=== PATIENT | male | born 1970 | race Two or more races ===

== ENCOUNTER 2021-11-08 10:13 | Outpatient (REF) | payer BC, SELFPAY ==
[2021-11-08 10:49] LABS: COVID-19 Test Negative (Negative); IDNOW Serial# 08D9AD1C
== END 2021-11-08 10:14 | disposition home or self-care (01) ==
LOC: HO.LAB 10:13
PROVIDERS: Visit Provider Internal Medicine
DX: Z20.822 Contact with and (suspected) exposure to COVID-19 (principal)
CPT/HCPCS: 87635; C9803

== ENCOUNTER 2023-07-31 05:13 | Emergency (ER) | payer BC, SELFPAY ==
[2023-07-31 05:18] VITALS: BP 153/82; PULSE 74; RESP 18; TEMP 36.7; O2SAT 96; BMI 28.5
[2023-07-31 05:51] LABS: COVID-19 Test Negative (Negative); IDNOW Serial# 08D9AD1C
[2023-07-31 06:16] LABS: IDNOW Serial# 08D9AD1C; Influenza A Invalid (Negative); Influenza B2 Invalid (Negative)
[2023-07-31 06:39] LABS: IDNOW Serial# 6674DD1D; Influenza A Negative (Negative); Influenza B2 Negative (Negative)
--- NOTE | 2023-07-31 09:15 | ED.GENADULT ---
HPI - General Adult General Chief complaint: General Medical Stated complaint: difficulty breathing Time Seen by Provider: 07/31/23 09:12 Source: patient Mode of arrival: ambulatory Limitations: no limitations History of Present Illness HPI narrative: Patient is a 52 year old assigned male at with no reported medical history presenting to the emergency department today with sinus pain and congestion. Patient states that for the last 2 weeks he has had sinus pain and congestion not improved with OTC medications. Patient denies any dizziness, lightheadedness, abdominal pain, nausea, vomiting, fever, chills, blurry vision, double vision, loss of vision, chest pain, difficulty breathing, shortness of breath, back pain, night sweats, pain with urination, increased urinary frequency, increased urinary urgency, blood in his urine or stool, syncope or a near syncopal episode, recent trauma or falls, bowel incontinence, bladder incontinence, bowel retention, bladder retention, or any other complaints at this time. Onset (ago): week(s) (2) Severity: mild Severity scale (1-10): 3 Quality: aching and dull Pain Consistency: constant Relieving factors: none Exacerbating factors: none Associated symptoms: denies other symptoms Treatments prior to arrival: none Related Data Previous Rx's Medication Instructions Recorded albuterol sulfate 90 mcg/actuation 1 puff PO Q4H #8.5 grams 10/17/20 aerosol inhaler doxycycline hyclate 100 mg tablet 100 mg PO BID 7 days #14 tabs 07/31/23 Allergies Allergy/AdvReac Type Severity Reaction Status Date / Time No Known Allergies Allergy Verified 07/31/23 05:18 [No Known Allergies*] Review of Systems Constitutional: Constitutional: Reports no additional constitutional complaints, Denies chills, Denies fever(s) and Denies night sweats Eyes: Eyes: Reports no additional eye complaints, Denies blurry vision, Denies change in vision, Denies diplopia, Denies eye discharge, Denies loss of vision and Denies eye pain ENT: Denies dizziness, Reports nasal congestion and Reports sinus pain Cardiovascular: Cardiovascular: Reports no additional cardiovascular complaints, Denies chest pain, Denies lightheadedness, Denies Loss of Consciousness and Denies dyspnea Respiratory: Respiratory: Reports no additional respiratory complaints and Denies dyspnea Gastrointestinal: Gastrointestinal: Reports no additional gastrointestinal complaints, Denies abdominal pain, Denies melena, Denies hematochezia, Denies change in bowel habits and Denies change in stool character Genitourinary: Genitourinary: Reports no additional male genitourinary complaints, Denies hematuria, Denies oliguria, Denies difficulty urinating, Denies dysuria, Denies urinary frequency, Denies urinary hesitancy, Denies urinary incontinence and Denies urinary urgency Musculoskeletal: Musculoskeletal: Reports no additional musculoskeletal complaints, Denies numbness and Denies tingling Neurologic: Denies dizziness, Denies loss of vision, Denies numbness and Denies tingling Psychiatric: Psychiatric: Reports no additional psychiatric complaints Endocrine: Endocrine: Reports no additional endocrine complaints Hematologic/Lymphatic: Hematologic/Lymphatic: Reports no additional hematologic/lymphatic complaints Allergic/Immunologic: Allergic/Immunologic: Reports no additional allergic/immunologic complaints PMFSH Past Medical History Attestation statement: The following information was validated with the patient. Source: old records reviewed and nursing notes reviewed Onset Date is defined in the Problem List Problems that require an onset date and time if occurred within 24 hrs of arrival to the ED Aortic Dissection and Rupture; Neurologic impairment; Cardiopulmonary Arrest; Endotracheal Intubation; Insertion or Replacement of Mechanical Circulatory Assist Device Physical Exam ED Vital Signs: Vital Signs - 24 hr 07/31/23 05:18 Temperature 98.1 F Pulse Rate 74 Respiratory Rate 18 Blood Pressure 153/82 H Pulse Oximetry 96 Oxygen Delivery Method Room Air BMI result Body Mass Index 28.5 Const General: cooperative, no acute distress, alert and awake Nutritional Appearance: well nourished Orientation/consciousness: patient oriented x3 Limitations: no limitations [facility] Head: Yes normal to inspection and Yes atraumatic Ears: hearing grossly normal bilaterally and external ears normal General nose exam: Normal external nose present, no nasal discharge noted and no epistaxis Face and sinus: Yes normal facial exam, No abrasion, No laceration and Yes sinus tenderness Mouth: Normal oral and palatal mucosa present, no drooling and no muffled voice Eyes General: appearance normal, both eyes and all related structures Periorbital: periorbital findings normal Eyelids: Yes eyelids normal Conjunctivae: conjunctivae normal Pupils: Equal, round and reactive pupils present EOM: EOMs intact bilaterally Neck Neck: Yes normal visual inspection, Yes full ROM and Yes no lymphadenopathy Chest Chest palpation & inspection: normal inspection of the chest Resp Effort & Inspection: normal respiratory effort and able to speak in complete sentences GI Inspection: Yes normal to inspection Neuro General: patient oriented x3 and moves all extremities Cranial nerves: Yes Equal, round and reactive pupils present Cognition (Neuro): normal cognition Motor exam (neuro): 5/5 motor strength present throughout Sensory Exam: Normal double simultaneous stimulation for sensation Coordination: [id number] test normal Extrem General: Yes normal to inspection, Yes full ROM and Yes capillary refill normal Psych Appearance: grossly normal Mental Status: mental status grossly normal Affect: normal affect Attitude: cooperative Thought process: Normal thought process present Thought content: Normal thought content present Insight: Good insight present (Psych) Medical Decision Making Medical Decision Making MDM Narrative: Patient is a 52 year old assigned male at with no reported medical history presenting to the emergency department today with nasal congestion and sinus pain. Patient's physical exam was as noted in the physical exam portion of this note. Patient's COVID-19 and influenza tests were negative. I explained my physical exam findings as well as all test results to the patient. I answered all questions asked by the patient. I stressed the importance of the patient taking his medication as prescribed. I stressed the importance of the patient following up with his primary care provider. I stressed the importance of the patient returning to the emergency department immediately if his symptoms were to worsen or if he were to develop any dizziness, shortness of breath, difficulty breathing, chest pain, blurry vision, loss of vision, nausea, vomiting, abdominal pain, fever, chills, back pain, or any other complaints. Patient verbalized agreement and understanding with this treatment plan and discharge. Differential Diagnosis Differential Diagnoses: The differential diagnosis associated with the presentation includes Sinusitis Influenza COVID-19 URI Viral illness Admission/Observation Consideration of admission/observation: Escalation of care including admission/observation considered Patient would have been admitted to the hospital had his work up had any findings where hospital admission was appropriate and his clinical presentation warranted hospital admission. Lab Data [facility] Lab Attestation statement: I reviewed the patient's lab results. My interpretation of these results are in the MDM Rationale portion of this note. Labs: Lab Results 07/31/23 07/31/23 Range/Units 05:27 06:18 COVID-19 (EDUAR) Negative (Negative) COVID-19 Clin Com See Note Influenza Type A (KYLE) Invalid Negative (Negative) Influenza Type B (KYLE) Invalid Negative (Negative) Influenza A & B Note See Note See Note Prescription Management I considered prescription management with: Antibiotic (patient prescribed an antibiotic for sinusitis) Discharge Plan Discharge Clinical Impression: Sinusitis Patient Disposition: Home, Self-Care Instructions: Sinusitis (ED) Additional Instructions: Follow up with your primary care provider. Return to the emergency department immediately if your symptoms worsen or if you develop any dizziness, shortness of breath, difficulty breathing, chest pain, blurry vision, loss of vision, nausea, vomiting, abdominal pain, fever, chills, back pain, or any other complaints. Prescriptions: New doxycycline hyclate 100 mg tablet 100 mg PO BID 7 Days Qty: 14 0RF No Action albuterol sulfate 90 mcg/actuation HFA aerosol inhaler 1 puff PO Q4H Qty: 8.5 6RF Referrals: Gustavo Woods, [employer] [Primary Care Provider] - Stand Alone Forms: Work/School Release Print Language: Indonesian
[2023-07-31 09:37] VITALS: BP 138/79; PULSE 72; RESP 16; TEMP 36.9; O2SAT 96
== END 2023-07-31 10:15 | disposition home or self-care (01) ==
PROVIDERS: Emergency Provider Emergency Medicine; PCP Nurse Practitioner Family
DX: J32.9 Chronic sinusitis, unspecified (principal); Z11.52 Encounter for screening for COVID-19
CPT/HCPCS: 87502; 87635; 99283

== ENCOUNTER 2023-08-06 09:01 | Outpatient (AMB) | payer BC, SELFPAY ==
[2023-08-06 09:01] VITALS: BP 138/76; PULSE 70; TEMP 36.8; O2SAT 98; BMI 28.6
--- NOTE | 2023-08-06 09:01 | AM.OFFWIN_ITS ---
Intake Vital Signs 08/06/23 09:01 Height 5 ft 10 in Weight 199 lb BMI 28.6 BP 138/76 Blood Pressure Location Lt brachial Position Sitting Pulse 70 Pulse Source Pulse Oximeter Temp 98.3 F Temp Source Oral Pulse Oximetry (%) 98 Intake Visit Reasons: EP Difficult breathing Intake Note: pt is here for c.o difficulty breathing and was in ED and states they gave him medication that didn't help and was also requesting a refill on the inhaler Allergies No Known Allergies [No Known Allergies*] Allergy (Verified 08/06/23 09:20) Medication List - Last Reconciled 08/06/23 by Gareth Ravi, FARHANA albuterol sulfate 90 mcg/actuation 1 puff PO Q4H doxycycline hyclate 100 mg PO BID 7 days Do you need a note to return to daycare/school/sports/work: Yes HPI HPI Comments History of Present Illness Details Patient is a 52-year-old male here for sick visit. He was recently seen in the emergency room 6 days prior for a diagnosis of sinusitis. His upper respiratory swab came back negative. He was discharged with Doxycycline. He states that he feels like he is having a hard time breathing because his nose is completely stuffed and he has been unable to clear his sinuses even with [id number] medicine and saline rinses. Denies fever, vomiting, chest pain, shortness a breath, dizziness, numbness. He recently completed his course of doxycycline. He does not have an albuterol inhaler at this time. Review of Systems Const All systems reviewed & are unremarkable except as noted in HPI and below Physical Exam Vital Signs: Vital signs have been reviewed and stable Const Other: Appearance: Alert.? Oriented X3.? No acute distress.? Head: Normocephalic, atraumatic, no step-offs or deformities Eyes: Pupils equal, round and reactive to light.?TM intact and pearly alvarez. ENT: Pharynx normal.?Septum midline, swollen turbinates. Neck: Normal inspection.? Neck supple.?Full ROM CVS: Normal heart rate and rhythm.? Pulses normal.? Respiratory: No respiratory distress.? Breath sounds normal.? Abdomen: Soft and nontender.? Neuro: Oriented X 3.? No motor deficit.? No sensory deficit. CN 2-12 intact Assessment & Plan Assessment & Plan (1) Upper respiratory infection: Comment: Patient has been instructed to use saline nasal spray, and sleep with a humidifier in his bedroom at night. Will also prescribe albuterol inhaler and prednisone to be taken as directed. Patient has been educated on signs of worsening symptoms when to report to the walk-in or when to present to the ED. Code(s): J06.9 - Acute upper respiratory infection, unspecified Qualifiers: URI type: unspecified URI Qualified Code(s): J06.9 - Acute upper respiratory infection, unspecified Plan: Take your medications as prescribed. If you were prescribed antibiotics today, it is important that you take your medication to their entirety, do not skip any doses, do not finish them early. Follow-up with your primary care provider this week. Return to the emergency department with new or worsening symptoms. Such as fevers, chills, chest pain, shortness of breath, nausea, vomiting, dizziness, headache, vision changes, lethargy In case of emergency call 911 Plan Follow-up with PCP. Orders: Orders SARS-CoV2/FLU/RSV Today J06.9 - Acute upper respiratory infection, unspecified Medications: New 2 albuterol sulfate 90 mcg/actuation 2 puffs inhalation Q6H PRN 6.7 grams 0RF shortness of breath or wheezing prednisone 40 mg (2 x 20 mg) PO DAILY 10 tabs 0RF Discontinued albuterol sulfate 90 mcg/actuation Discontinued Reason: Doctor's Order 1 puff PO Q4H 8.5 grams 6RF Coding Level of Care Code Est Pt Level 3 (90778) Diagnoses Upper respiratory tract infection, unspecified type J06.9 URI type: unspecified URI Time Spent (min) 20
== END 2023-08-06 10:27 | disposition home or self-care (01) ==
PROVIDERS: PCP Nurse Practitioner Family; Visit Provider Nurse Practitioner Primary Care
DX: J06.9 Acute upper respiratory infection, unspecified (principal)
CPT/HCPCS: 99213

== ENCOUNTER 2023-08-06 09:18 | Outpatient (REF) | payer BC, SELFPAY ==
[2023-08-06 12:49] LABS: Influenza A PCR NEGATIVE (Negative); Influenza B PCR NEGATIVE (Negative); Resp Syncy Virus RNA Qual PCR NEGATIVE (Negative); SARS COV2 PCR INHOUSE NEGATIVE (Negative)
== END 2023-08-06 09:19 | disposition home or self-care (01) ==
LOC: HO.LAB 09:18
PROVIDERS: Visit Provider Nurse Practitioner Primary Care
DX: Z11.52 Encounter for screening for COVID-19 (principal); J06.9 Acute upper respiratory infection, unspecified
CPT/HCPCS: 0241U

== ENCOUNTER 2023-09-04 09:38 | Outpatient (AMB) | payer BC, SELFPAY ==
[2023-09-04 10:10] VITALS: BP 128/76; PULSE 96; O2SAT 97; BMI 29.0
--- NOTE | 2023-09-04 10:10 | MHC.PC.OV ---
Vital Signs 09/04/23 10:10 Height 5 ft 10 in Weight 202 lb BMI 29.0 BP 128/76 Blood Pressure Location Lt brachial Position Sitting Pulse 96 Pulse Source Pulse Oximeter Pulse Oximetry (%) 97 Oxygen Delivery Method Room Air Intake Visit Reasons: [employer]/ re est care Intake Note: Pt is here today for New patient visit. Allergies No Known Allergies [No Known Allergies*] Allergy (Verified 09/04/23 10:27) Medication List - Last Reconciled 09/04/23 by FARHANA Cordero albuterol sulfate 90 mcg/actuation 2 puffs inhalation Q6H PRN Tobacco use date assessed: 09/04/23 Dental Screening Dental Screen Date: 09/04/23 Did you have a dental visit in the last 12 months?: Yes Did you have a dental problem in the last 6 months where you did not have access to dental care?: No Was dental information given to patient?: Patient has dentist HPI HPI Comments History of Present Illness Details Patient is a 52-year-old male in to [facility]. He has a past medical history significant for seasonal allergies, on reactive airway disease. He has not had a primary care provider in several years. He is declining the COVID and influenza vaccine today. He is declining colonoscopy today but will opt for Cologuard. Patient will get the shingles vaccine. Patient is due for fasting labs. [facility] Family History Father Hypertension Substance use disorder Mother Aneurysm Hypertension Sister Breast cancer Social History Housing: House Alcohol intake: current Comment: twice per month Patient Tobacco Use Status: Current someday Tobacco user Tobacco use type: Cigarette e-Cigarette/Vaping Use: Never Used Current occupational status: employed Cognitive needs: No Hearing needs: No Vision needs: No Questionnaire PHQ-9 Over the last 2 weeks, how often have you been bothered by any of the following problems? 1. Little interest or pleasure in doing things: not at all 2. Feeling down, depressed, or hopeless: not at all 3. Trouble falling or staying asleep, or sleeping too much: several days 4. Feeling tired or having little energy: several days 5. Poor appetite or overeating: not at all 6. Feeling bad about yourself - or that you are a failure or have let yourself or your family down: not at all 7. Trouble concentrating on things, such as reading the newspaper or watching television: not at all 8. Moving or speaking so slowly that other people could have noticed. Or the opposite - being so fidgety or restless that you have been moving around a lot more than usual: not at all 9. Thoughts that you would be better off or of hurting yourself in some way: not at all Total score: 2 Depression Screening Interpretation: Negative Depression Screening Done: Yes Source: Developed by Drs. Champ Ford, Sharri Lopez, Miguel Bello and colleagues, with an educational milind from [employer]. Thrive Questionnaire Date Thrive assessed: 09/04/23 I am a: Patient What is your living situation today?: I have a steady place to live Within the past 12 months, did the food you bought not last and you didn't have the money to get more?: Never true Within the past 12 months, did you worry whether your food would run out before you got money to buy more?: Never true Do you have trouble paying for medicines?: No Do you have trouble getting transportation to medical appointments?: No Do you have trouble paying your heating and electricity bill?: No Do you have trouble taking care of your child, family member or friend?: No Do you have trouble with day-to-day activities such as bathing, preparing meals, shopping, managing finances, etc.?: No Are you currently unemployed and looking for a job?: No Are you interested in more education?: No Please select the resources that you would like help with: None THRIVE Score: 0 AUDIT C Alcohol Use Questionnaire (AUDIT-C) 1. How often do you have a drink containing alcohol?: Monthly or less 2. How many drinks containing alcohol do you have on a typical day when you are drinking?: 1 or 2 3. How often do you have six or more drinks on one occasion?: Never Total Score: 1 SERGIO-7 AMB Questionnaire SERGIO-7 Date SERGIO - 7 assessed: 09/04/23 Feeling nervous, anxious, or on edge: 0 = Not at all Not being able to stop or control worryin = Not at all Worrying too much about different things: 0 = Not at all Trouble relaxin = Several days Being so restless that it is hard to sit still: 1 = Several days Becoming easily annoyed or irritable: 0 = Not at all Feeling afraid as if something awful might happen: 0 = Not at all Total SERGIO-7 score (0-4 normal; 5-9 mild; 10-14 moderate; 15-21 severe): 2 Source: Developed by Drs. Champ Ford, Sharri Lopez, Miguel Bello and colleagues, with an educational milind from [employer]. SERGIO-7 Assessment Billing SERGIO-7 Assessment Tool: SERGIO-7 Assessment 65422 Review of Systems Const Details: Constitutional : No Weight loss, No Fever, No Chills, No Fatigue, No Malaise ENT/Mouth : No sore throat, Admits nasal congestion. Eyes: No Eye Pain, No Swelling, No Redness Cardiovascular : No Chest Pain, No SOB, No Dyspnea on Exertion, No Orthopnea, No Edema, No Palpitations Respiratory : No Cough, No Sputum, No Wheezing Gastrointestinal : No Nausea, No Vomiting, No Diarrhea, No Constipation, No abdominal Pain, No Hematochezia, No Melena Genitourinary : No Dysuria, No Urinary Frequency, No Hematuria, Musculoskeletal : No joint pain, No Myalgias, No Joint Swelling Skin : No Skin Lesions, No rash Neuro : No Weakness, No Numbness, No Dizziness, No Headache Psych : No Anxiety/Panic, No Depression Heme/Lymph: No Bruising, No Bleeding,No Lymphadenopathy Endocrine : No Polyuria, No Polydipsia All other systems reviewed and are negative Physical exam (Primary Care) Care Plan Goal for BP management: Vital signs reviewed are stable. BMI result Body Mass Index 29.0 Depression Screening Interpretation: Negative Const General: cooperative and no acute distress Orientation/consciousness: patient oriented x3 Limitations: no limitations HENMT Head: Yes normal to inspection and Yes normocephalic General nose exam: Abnormal mucous membranes and turbinates present boggy Face and sinus: Yes normal facial exam and Yes sinuses nontender Eyes General: appearance normal, both eyes and all related structures Neck Neck: Yes normal visual inspection and Yes full ROM Chest Chest palpation & inspection: normal inspection of the chest Resp Auscultation: clear to auscultation bilaterally Cardio Rate: regular rate Rhythm: regular rhythm Heart sounds: S1 normal heart sound present and S2 normal heart sound present Neuro General: patient oriented x3 and CN's II-XI intact bilaterally Cognition (Neuro): normal cognition Gait exam (Neuro): Normal gait present Psych Attitude: cooperative Thought process: Normal thought process present Thought content: Normal thought content present Insight: Good insight present (Psych) Judgement: Good judgement present (Psych) Assessment and Plan Assessment & Plan (1) Reactive airway disease: Comment: Patient has albuterol inhaler which he states he uses intermittently. Code(s): J45.909 - Unspecified asthma, uncomplicated Qualifiers: Asthma severity: mild Asthma persistence: intermittent Asthma complication type: uncomplicated Qualified Code(s): J45.20 - Mild intermittent asthma, uncomplicated Plan: Controlled at this time. (2) Nasal sinus congestion: Comment: Patient will be given prednisone in fluticasone to be taken as directed. He has been educated on signs of worsening symptoms and when to report back to the office or when to report to the walk-in. Code(s): R09.81 - Nasal congestion Plan: Take your medications as prescribed. If you were prescribed antibiotics today, it is important that you take your medication to their entirety, do not skip any doses, do not finish them early. Follow-up with your primary care provider this week. Return to the emergency department with new or worsening symptoms. Such as fevers, chills, chest pain, shortness of breath, nausea, vomiting, dizziness, headache, vision changes, lethargy In case of emergency call 911 Plan Patient will follow-up with physical exam in 4-5 months. He will draw labs. Orders: Orders Lipid Panel Today Z13.220 - Encounter for screening for lipoid disorders PSA,Total (Free>4and<10) Today Z12.5 - Encounter for screening for malignant neoplasm of prostate Vitamin D 25-OH (D2 and D3) Today Z13.21 - Encounter for screening for nutritional disorder TSH reflex Free T4 Today Z13.29 - Encounter for screening for other suspected endocrine disorder Complete Blood Count Auto Diff Today Z13.0 - Encounter for screening for diseases of the blood and blood-forming organs and certain disorders involving the immune mechanism Comprehensive Met. Panel Today Z91.89 - Other specified personal risk factors, not elsewhere classified UA CC w/rflx Micro + Cult Today Z13.89 - Encounter for screening for other disorder Referrals Cologuard Test Z12.11 - Encounter for screening for malignant neoplasm of colon, Z12.12 - Encounter for screening for malignant neoplasm of rectum Medications: New prednisone 40 mg (2 x 20 mg) PO DAILY 10 tabs 0RF fluticasone propionate 50 mcg/actuation (Allergy Relief (fluticasone)) administer into each nostril 2 sprays intranasal DAILY 16 grams 0RF Review Patient declined Colonoscopy: 09/04/23 Flu Vaccine not done: patient reason Coding Level of Care Code Est Pt Level 3 (63551) Diagnoses Mild intermittent reactive airway disease without complication J45.20 Asthma severity: mild Asthma persistence: intermittent Asthma complication type: uncomplicated Nasal sinus congestion R09.81 Additional Codes SERGIO-7 Assessment Billing - SERGIO-7 Assessment Tool: SERGIO-7 Assessment 57124 ([id number]) Time Spent (min) 30
== END 2023-09-04 10:51 | disposition home or self-care (01) ==
PROVIDERS: PCP Nurse Practitioner Family; Visit Provider Nurse Practitioner Primary Care
DX: J45.20 Mild intermittent asthma, uncomplicated (principal); R09.81 Nasal congestion
CPT/HCPCS: 99214

== ENCOUNTER 2023-10-24 13:51 | Outpatient (AMB) | payer BC, SELFPAY ==
[2023-10-24 13:52] VITALS: BP 118/84; PULSE 83; TEMP 36.8; O2SAT 96; BMI 28.1
--- NOTE | 2023-10-24 13:52 | MHC.OFFWIV ---
Intake Vital Signs 10/24/23 13:52 Height 5 ft 10 in Weight 196 lb 2 oz BMI 28.1 BP 118/84 Blood Pressure Location Lt brachial Position Sitting Pulse 83 Pulse Source Pulse Oximeter Temp 98.2 F Temp Source Oral Pulse Oximetry (%) 96 Oxygen Delivery Method Room Air Intake Visit Reasons: EP rt hand hangnail? Intake Note: Pt presents to the office today for c/o a right hand hangnail on his ring finger. Pt states the swelling and pain started yesterday. Pt denies any discharge from the finger. Patient Tobacco Use Status: Current someday Tobacco user Allergies No Known Allergies [No Known Allergies*] Allergy (Verified 10/24/23 13:55) HPI EP rt hand hangnail? HPI Details This is a 52 year old male patient who presents today with a swollen fingernail area on his right 4th finger at the base of the nailbed. He states he thinks this started as a hangnail which became infected. He has swelling and tenderness at the base of that fingernail bed. He has applied some hydrocortisone cream. He denies any fevers or any other complaints. [facility] Family History Father Hypertension Substance use disorder Mother Aneurysm Hypertension Sister Breast cancer Social History Housing: House Alcohol intake: current Comment: twice per month Patient Tobacco Use Status: Current someday Tobacco user Tobacco use type: Cigarette e-Cigarette/Vaping Use: Never Used Current occupational status: employed Cognitive needs: No Hearing needs: No Vision needs: No Review of Systems Const All systems reviewed & are unremarkable except as noted in HPI and below Physical Exam Vital Signs: Last Vital Signs Temp 98.2 F 10/24/23 13:52 Pulse 83 10/24/23 13:52 BP 118/84 10/24/23 13:52 Pulse Ox 96 10/24/23 13:52 Oxygen Delivery Method Room Air 10/24/23 13:52 BMI result Body Mass Index 28.1 Const General: cooperative and no acute distress Resp Effort & Inspection: normal respiratory effort Skin General skin exam: no rashes or lesions noted Extrem Other: base of nail bed of right 4th finger swollen, fluctuant, and erythematous. Normal cap refill. Normal finger ROM. No extending erythema or tenderness beyond site Psych Appearance: grossly normal Mental Status: mental status grossly normal Speech and movement: Normal speech and movement present Assessment & Plan Assessment & Plan (1) Infection of nail bed of finger of right hand: Code(s): L03.011 - Cellulitis of right finger Plan: Patient declined I&D at this time. We discussed soaking finger in epsom salt/warm water solution, and keeping area clean/dry otherwise. I am also going to start him on a short course of Bactrim for MRSA coverage. We reviewed indications, use, possible s/e of medication. If he does not improve with treatment or if symptoms worsen, he can return to the clinic. He agrees with plan. Medications: New sulfamethoxazole-trimethoprim 800-160 mg Take one tablet by mouth twice a day for 5 days. 1 tab PO BID 5 days 10 tabs 0RF L03.011 - Cellulitis of right finger Coding Level of Care Code Est Pt Level 4 (44982) Diagnoses Infection of nail bed of finger of right hand L03.011
== END 2023-10-24 14:20 | disposition home or self-care (01) ==
PROVIDERS: PCP Nurse Practitioner Primary Care; Visit Provider Nurse Practitioner Family
DX: L03.011 Cellulitis of right finger (principal)
CPT/HCPCS: 99214

== ENCOUNTER 2024-01-22 14:41 | Outpatient (AMB) | payer BC, SELFPAY ==
--- NOTE | 2024-01-22 14:44 | A.OFFPC_ITS ---
Vital Signs 01/22/24 14:46 Height 5 ft 10 in Weight 194 lb BMI 27.8 BP 124/82 Blood Pressure Location Lt brachial Position Sitting Pulse 67 Pulse Source Pulse Oximeter Pulse Oximetry (%) 98 Oxygen Delivery Method Room Air Intake Visit Reasons: 5M F/U Intake Note: pt is here for his 5 month f/u Allergies No Known Allergies [No Known Allergies*] Allergy (Verified 01/22/24 14:45) Medication List - Last Reconciled 01/22/24 by FARHANA Cordero albuterol sulfate 90 mcg/actuation 2 puffs inhalation Q6H PRN fluticasone propionate 50 mcg/actuation 2 sprays intranasal DAILY Tobacco use date assessed: 01/22/24 Dental Screening Dental Screen Date: 09/04/23 HPI HPI Comments History of Present Illness Details Patient is a 53-year-old male in today for a sick visit. patient has labs orders however he has not got them drawn, will educate him to get labs drawn as soon as possible. Patient with here offering complaints of sinus congestion, with sinus pain, is also expect to rating green mucus. Patient states he has had this issue intermittently since July. Has gotten some relief with fluticasone however symptoms have progressively gotten worse over the past week. Denies fever, denies chills, denies headache, denies nausea, vomiting, diarrhea PFSH Family History Father Hypertension Substance use disorder Mother Aneurysm Hypertension Sister Breast cancer Social History Housing: House Alcohol intake: current Comment: twice per month Patient Tobacco Use Status: Current someday Tobacco user Tobacco use type: Cigarette e-Cigarette/Vaping Use: Never Used Current occupational status: employed Cognitive needs: No Hearing needs: No Vision needs: No Questionnaire Thrive Questionnaire Date Thrive assessed: 09/04/23 SERGIO-7 AMB Questionnaire SERGIO-7 Date SERGIO - 7 assessed: 09/04/23 Source: Developed by Drs. Champ Ford, Sharri Lopez, Miguel Bello and colleagues, with an educational milind from [employer] Review of Systems Const All systems reviewed & are unremarkable except as noted in HPI and below Physical exam (Primary Care) Tobacco/Smoking Status: Tobacco use Status Tobacco use date assessed 01/22/24 01/22/24 14:46 Patient Tobacco Use Status Current someday Tobacco 01/22/24 14:44 Tobacco use type Cigarette 01/22/24 14:44 e-Cigarette/Vaping Use Never Used 01/22/24 14:44 Thrive Assessment: Date of Thrive Assessment Date Thrive assessed 09/04/23 01/22/24 14:44 [facility] Other: Appearance: Alert.? Oriented X3.? No acute distress.? Head: Normocephalic, atraumatic, no step-offs or deformities Eyes: Pupils equal, round and reactive to light.? ENT: Pharynx normal.?+ Sinus tenderness. TM intact and pearly alvarez. Neck: Normal inspection.? Neck supple.? CVS: Normal heart rate and rhythm.? Pulses normal.? Respiratory: No respiratory distress.? Breath sounds normal.? Neuro: Oriented X 3.? No motor deficit.? No sensory deficit. CN 2-12 intact Assessment and Plan Assessment & Plan (1) Chronic recurrent sinusitis: Comment: will give patient azithromycin and prednisone. Will also give patient referral to Ear Nose Throat for chronic sinusitis. Code(s): J32.9 - Chronic sinusitis, unspecified Plan: Take your medications as prescribed. If you were prescribed antibiotics today, it is important that you take your medication to their entirety, do not skip any doses, do not finish them early. Follow-up with your primary care provider this week. Return to the emergency department with new or worsening symptoms. Such as fevers, chills, chest pain, shortness of breath, nausea, vomiting, dizziness, headache, vision changes, lethargy In case of emergency call 911 Plan draw labs and will follow-up with results. Orders: Referrals Ear/Nose/Throat Referral J32.9 - Chronic sinusitis, unspecified Medications: New azithromycin For 250 mg dose pack: take 500 mg today (day 1), then 250 mg for 4 days (days 2-5) PO 6 tabs 0RF prednisone 20 mg PO BID 10 tabs 0RF Coding Level of Care Code Est Pt Level 3 (98136) Diagnoses Chronic recurrent sinusitis J32.9
[2024-01-22 14:46] VITALS: BP 124/82; PULSE 67; O2SAT 98; BMI 27.8
== END 2024-01-22 17:51 | disposition home or self-care (01) ==
PROVIDERS: PCP Nurse Practitioner Primary Care; Visit Provider Nurse Practitioner Primary Care
DX: J32.9 Chronic sinusitis, unspecified (principal)
CPT/HCPCS: 99213

== ENCOUNTER 2024-01-23 14:48 | Outpatient (REF) | payer BC, SELFPAY ==
[2024-01-23 16:00] LABS: MANUAL DIFF FLAG NO
[2024-01-23 16:19] LABS: Basophils Percent Auto 0.2 % (0-2); Eosinophils Percent Auto 0.1 % (0-4); Hematocrit 45.2 % (42.0-52.0); Hemoglobin 15.3 g/dl (14.0-18.0); Imm Gran Abs Auto 0.04 X10*3/uL (0.00-0.03); Imm Gran Pct Auto 0.4 % (0.0-0.4); Lymphocytes Percent Auto 9.2 % (20-40); Mean Corpuscular HGB Conc 33.8 g/dl (31.0-36.0); Mean Corpuscular Hemoglobin 28.9 pg (27.0-33.0); Mean Corpuscular Volume 85.4 fL (80.0-98.0); Mean Platelet Volume 10.7 fL (9.4-12.4); Monocytes Absolute Auto 0.3 X10*3/uL (0.1-1.2); Monocytes Percent Auto 2.9 % (2-11); Neutrophils Absolute Auto 9.9 x10*3/uL (2.0-8.3); Neutrophils Percent Auto 87.2 % (45-73); Platelet Count 240 X10*3/uL (160-400); Red Blood Count 5.29 X10*6/uL (4.60-5.80); Red Cell Distribution Width 13.4 % (11.0-16.0); White Blood Count 11.3 X10*3/uL (4.8-10.8)
[2024-01-23 16:20] LABS: Appearance Urine Clear; Color Urine Dark Yellow; Glucose Urine UA Negative (Negative); Leukocyte Esterase Urine Negative (Negative); Nitrite Urine Negative (Negative); PH 5.5 (5.0-9.0); Specific Gravity - Urine >= 1.030 (1.005-1.025); UMIC TRIGGER UACC YES; Urine Blood Trace (Negative); Urine Ketones Trace mg/dL (Negative); Urine Protein Trace mg/dL (Neg-Trace)
[2024-01-23 16:26] LABS: Bacteria Urine None Seen (None Seen); Hyaline Casts Urine 0-2 /LPF (0-2); Squamous Epithelial Cell Urine 0-2 /HPF (0-2); WBC Urine 0-5 /HPF (0-5)
[2024-01-23 16:46] LABS: Alanine Aminotransferase 17 U/L (0-40); Albumin Level 4.9 g/dL (3.5-5.0); Alkaline Phosphatase 89 U/L (39-117); Anion Gap 14 (12-20); Aspartate Amino Transferase 16 U/L (5-37); Bilirubin Total 0.6 mg/dL (0.0-1.0); Blood Urea Nitrogen 13 mg/dL (9-16); Calcium 10.1 mg/dL (8.4-10.2); Carbon Dioxide 25 mmol/L (22-29); Chloride 109 mmol/L (96-108); Cholesterol 181 mg/dL (<200); Estimated Glomerular Filt Rate > 60; Glucose Random 109 mg/dL (60-115); HDL Cholesterol 37 mg/dL (>40); LDL Cholesterol Calculated 118 mg/dL (<100); Potassium 4.8 mmol/L (3.3-5.1); Sodium 143 mmol/L (135-145); Total Protein 8.2 g/dL (6.5-8.0); Triglycerides 130 mg/dL (<150)
[2024-01-23 16:48] LABS: PSA,Total (Free>4and<10) 0.66 ng/mL (0.00-4.00)
[2024-01-23 16:57] LABS: TSH reflex Free T4 0.55 uIU/mL (0.32-4.0)
[2024-01-27 16:03] LABS: Vitamin D 25-OH, D2 <4 ng/mL; Vitamin D 25-OH, D3 38 ng/mL; Vitamin D 25-OH, Total 38 ng/mL (30-100)
== END 2024-01-23 14:49 | disposition home or self-care (01) ==
LOC: HO.HMGCLDS 14:48
PROVIDERS: PCP Nurse Practitioner Primary Care; Visit Provider Nurse Practitioner Primary Care
DX: Z13.0 Encounter for screening for diseases of the blood and blood-forming organs and certain disorders involving the immune mechanism (principal); Z13.220 Encounter for screening for lipoid disorders; Z13.29 Encounter for screening for other suspected endocrine disorder; Z12.5 Encounter for screening for malignant neoplasm of prostate; Z13.21 Encounter for screening for nutritional disorder; Z91.89 Other specified personal risk factors, not elsewhere classified
CPT/HCPCS: 36415; 80053; 80061; 81001; 82306; 84153; 84443; 85025

== ENCOUNTER 2024-07-02 14:39 | Outpatient (AMB) | payer BC, SELFPAY ==
[2024-07-02 15:50] VITALS: BP 120/70; PULSE 82; O2SAT 98; BMI 29.1
--- NOTE | 2024-07-02 15:50 | A.OFFPC_ITS ---
Vital Signs 07/02/24 15:50 Height 5 ft 10 in Weight 203 lb BMI 29.1 BP 120/70 Blood Pressure Location Rt brachial Position Sitting Pulse 82 Pulse Source Pulse Oximeter Pulse Oximetry (%) 98 Oxygen Delivery Method Room Air Intake Visit Reasons: Transfer from [facility] Allergies No Known Allergies [No Known Allergies*] Allergy (Verified 07/05/24 14:24) Medication List - Last Reconciled 07/05/24 by Jaymie Kelley MD fluticasone propionate 50 mcg/actuation 2 sprays intranasal DAILY Tobacco use date assessed: 07/02/24 Dental Screening Dental Screen Date: 07/02/24 Did you have a dental visit in the last 12 months?: Yes Did you have a dental problem in the last 6 months where you did not have access to dental care?: Yes Was dental information given to patient?: Patient has dentist HPI Transfer from [facility] HPI Details - The patient is a 53-year-old male, new to me, presenting today complaining rhinorrhea and nasal congestion, has history allergic rhinitis. - Regularly uses Fluticasone nasal spray (Flonase) for allergy management which has been helping, Requests a refill of Flonase. - Diagnosed with a deviated nasal septum by ENT, causing nasal obstruction. Previously advised surgical correction but deferred due to financial constraints. - Occasionally experiences nasal blockag e and discomfort [facility] Medical History (Updated 07/05/24 @ 14:27 by Jaymie Kelley MD) Environmental and seasonal allergies Deviated nasal septum Surgical History (Updated 07/05/24 @ 14:28 by Jaymie Kelley MD) No pertinent past surgical history Family History Father Hypertension Substance use disorder Mother Aneurysm Hypertension Sister Breast cancer Social History Housing: House Alcohol intake: current Comment: twice per month Patient Tobacco Use Status: Current someday Tobacco user Tobacco use type: Cigarette e-Cigarette/Vaping Use: Never Used Current occupational status: employed Cognitive needs: No Hearing needs: No Vision needs: No Questionnaire PHQ-9 Over the last 2 weeks, how often have you been bothered by any of the following problems? 1. Little interest or pleasure in doing things: not at all 2. Feeling down, depressed, or hopeless: not at all 3. Trouble falling or staying asleep, or sleeping too much: not at all 4. Feeling tired or having little energy: not at all 5. Poor appetite or overeating: not at all 6. Feeling bad about yourself - or that you are a failure or have let yourself or your family down: not at all 7. Trouble concentrating on things, such as reading the newspaper or watching television: not at all 8. Moving or speaking so slowly that other people could have noticed. Or the op posite - being so fidgety or restless that you have been moving around a lot more than usual: not at all 9. Thoughts that you would be better off or of hurting yourself in some way: not at all Total score: 0 Source: Developed by Drs. Champ Ford, Sharri Lopez, Miguel Bello and colleagues, with an educational milind from [employer]. Thrive Questionnaire Date Thrive assessed: 06/25/24 I am a: Patient What is your living situation today?: I have a steady place to live Within the past 12 months, did the food you bought not last and you didn't have the money to get more?: Never true Within the past 12 months, did you worry whether your food would run out before you got money to buy more?: Never true Do you have trouble paying for medicines?: No Do you have trouble getting transportation to medical appointments?: No Do you have trouble paying your heating and electricity bill?: No Do you have trouble taking care of your child, family member or friend?: No Do you have trouble with day-to-day activities such as bathing, preparing meals, shopping, managing finances, etc.?: No Are you currently unemployed and looking for a job?: No Are you interested in more education?: Yes Please select the resources that you would like help with: Education Currently or been in a relationship where the following occur: No concerns reported THRIVE Score: 0 AUDIT C Alcohol Use Questionnaire (AUDIT-C) 1. How often do you have a drink containing alcohol?: 2-4 times a month 2. How many drinks containing alcohol do you have on a typical day when you are drinking?: 1 or 2 3. How often do you have six or more drinks on one occasion?: Monthly Total Score: 4 SERGIO-7 AMB Questionnaire ESRGIO-7 Date SERGIO - 7 assessed: 09/04/23 Feeling nervous, anxious, or on edge: 0 = Not at all Not being able to stop or control worryin = Not at all Worrying too much about different things: 0 = Not at all Trouble relaxin = Not at all Being so restless that it is hard to sit still: 0 = Not at all Becoming easily annoyed or irritable: 0 = Not at all Feeling afraid as if something awful might happen: 0 = Not at all Total SERGIO-7 score (0-4 normal; 5-9 mild; 10-14 moderate; 15-21 severe): 0 Source: Developed by Drs. Champ Ford, Sharri Lopez, Miguel Bello and colleagues, with an educational milind from [employer]. Review of Systems Const All systems reviewed & are unremarkable except as noted in HPI and below Physical exam (Primary Care) Vital Signs: Last Vital Signs Pulse 82 07/02/24 15:50 BP 120/70 07/02/24 15:50 Pulse Ox 98 07/02/24 15:50 Oxygen Delivery Method Room Air 07/02/24 15:50 BMI result Body Mass Index 29.1 Tobacco/Smoking Status: Tobacco use Status Tobacco use date assessed 07/02/24 07/02/24 15:53 Patient Tobacco Use Status Current someday Tobacco 07/02/24 15:50 Tobacco use type Cigarette 07/02/24 15:50 e-Cigarette/Vaping Use Never Used 07/02/24 15:50 PHQ-9: PHQ-9 Score PHQ-9: Total score 0 07/05/24 14:23 Thrive Assessment: Date of Thrive Assessment Date Thrive assessed 06/25/24 07/02/24 15:50 Currently or been in a relationship where the following occur: No concerns reported Const General: no acute distress and alert Orientation/consciousness: patient oriented x3 HENMT Ears: EAC's normal General nose exam: Normal external nose present and No nasal discharge present Mouth: Normal oral and palatal mucosa present, oropharynx normal and moist mucous membranes Eyes General: appearance normal, both eyes and all related structures Neck Neck: Yes full ROM, Yes no lymphadenopathy and Yes supple Resp Effort & Inspection: normal respiratory effort and able to speak in complete sentences Auscultation: clear to auscultation bilaterally Cardio Rate: regular rate Rhythm: regular rhythm Heart sounds: S1 normal heart sound present and S2 normal heart sound present GI Palpation (GI): Soft to palpation, nontender and no masses Auscultation: normal bowel sounds Skin General skin exam: no rashes or lesions noted Neuro General: patient oriented x3, gait normal, tone normal, moves all extremities, Normal light touch and pain sensation and no focal motor deficits Cranial nerves: Yes CN's II-XII intact bilaterally Cognition (Neuro): normal cognition Extrem General: Yes full ROM, Yes no joint enlargement, Yes no clubbing, cyanosis or edema and Yes no calf tenderness Psych Appearance: grossly normal and well kempt Mental Status: mental status grossly normal Speech and movement: Normal speech and movement present Affect: normal affect Attitude: cooperative Thought process: Normal thought process present Thought content: Normal thought content present, suicidality and no homicidality Coding Level of Care Code Est Pt Level 3 (36265) Diagnoses Environmental and seasonal allergies J30.89 Deviated nasal septum J34.2 Assessment & Plan Assessment & Plan (1) Environmental and seasonal allergies: Code(s): J30.89 - Other allergic rhinitis Category: Medical Plan: Prescription refill sent for Flonase nasal spray, 1 spray per nostril once or twice a day as needed (2) Deviated nasal septum: Code(s): J34.2 - Deviated nasal septum Category: Medical Plan: Consider ENT consult, patient declined at present time Medications: Refilled fluticasone propionate 50 mcg/actuation 2 sprays intranasal DAILY 48 mL 1RF
== END 2024-07-02 16:13 | disposition home or self-care (01) ==
PROVIDERS: PCP Nurse Practitioner Primary Care; Visit Provider Internal Medicine
DX: J30.89 Other allergic rhinitis (principal); J34.2 Deviated nasal septum

== ENCOUNTER → 2024-07-02 14:39 | Outpatient (BNVA) | payer BC, SELFPAY | PROVIDERS: PCP Nurse Practitioner Primary Care; Visit Provider Internal Medicine ==

== ENCOUNTER 2024-10-08 15:42 | Outpatient (AMB) | payer BC, SELFPAY ==
[2024-10-08 15:56] VITALS: BP 126/80; PULSE 83; TEMP 36.8; O2SAT 97; BMI 29.3
--- NOTE | 2024-10-08 15:56 | MHC.PC.OV ---
Vital Signs 10/08/24 15:56 Height 5 ft 10 in Weight 204 lb BMI 29.3 BP 126/80 Blood Pressure Location Lt brachial Position Sitting Pulse 83 Pulse Source Pulse Oximeter Temp 98.3 F Temp Source Oral Pulse Oximetry (%) 97 Oxygen Delivery Method Room Air Intake Visit Reasons: PE Allergies No Known Allergies [No Known Allergies*] Allergy (Verified 10/08/24 16:09) Medication List - Last Reconciled 10/08/24 by Jaymie Kelley MD fluticasone propionate 50 mcg/actuation 2 sprays intranasal DAILY Tobacco use date assessed: 10/08/24 Dental Screening Dental Screen Date: 10/08/24 Did you have a dental visit in the last 12 months?: Yes Did you have a dental problem in the last 6 months where you did not have access to dental care?: Yes Was dental information given to patient?: Patient has dentist HPI PE HPI Details 53-year-old male with history of seasonal allergies, using fluticasone nasal spray as needed, here today for physical exam. He has been feeling well, exercise regularly at the gym, and lifts weights, compliant with a healthy diet. He however continues to smoke at least 7 cigarettes a day, but is interested in quitting. He is up to date with his colon cancer screen done in 2023 with negative findings. [facility] Medical History Cigarette smoker motivated to quit Environmental and seasonal allergies Deviated nasal septum Surgical History No pertinent past surgical history Family History Father Hypertension Substance use disorder Mother Aneurysm Hypertension Sister Breast cancer Social History Housing: House Alcohol intake: current Comment: twice per month Patient Tobacco Use Status: Current someday Tobacco user Tobacco use type: Cigarette e-Cigarette/Vaping Use: Never Used Current occupational status: employed Cognitive needs: No Hearing needs: No Vision needs: No Questionnaire PHQ-9 Over the last 2 weeks, how often have you been bothered by any of the following problems? 1. Little interest or pleasure in doing things: not at all 2. Feeling down, depressed, or hopeless: not at all 3. Trouble falling or staying asleep, or sleeping too much: not at all 4. Feeling tired or having little energy: not at all 5. Poor appetite or overeating: not at all 6. Feeling bad about yourself - or that you are a failure or have let yourself or your family down: not at all 7. Trouble concentrating on things, such as reading the newspaper or watching television: not at all 8. Moving or speaking so slowly that other people could have noticed. Or the opposite - being so fidgety or restless that you have been moving around a lot more than usual: not at all 9. Thoughts that you would be better off or of hurting yourself in some way: not at all Total score: 0 Depression Screening Interpretation: Negative Depression Screening Done: Yes 90932 - PHQ-9 Billing: Yes Source: Developed by Drs. Champ Ford, Sharri Lopez, Miguel Bello and colleagues, with an educational milind from [employer]. Thrive Questionnaire Date Thrive assessed: 10/01/24 I am a: Patient What is your living situation today?: I have a steady place to live Within the past 12 months, did the food you bought not last and you didn't have the money to get more?: Never true Within the past 12 months, did you worry whether your food would run out before you got money to buy more?: Never true Do you have trouble paying for medicines?: No Do you have trouble getting transportation to medical appointments?: No Do you have trouble paying your heating and electricity bill?: No Do you have trouble taking care of your child, family member or friend?: No Do you have trouble with day-to-day activities such as bathing, preparing meals, shopping, managing finances, etc.?: No Are you currently unemployed and looking for a job?: No Are you interested in more education?: No Please select the resources that you would like help with: None Currently or been in a relationship where the following occur: No concerns reported THRIVE Score: 0 AUDIT C Alcohol Use Questionnaire (AUDIT-C) 1. How often do you have a drink containing alcohol?: Never 2. How many drinks containing alcohol do you have on a typical day when you are drinking?: 1 or 2 3. How often do you have six or more drinks on one occasion?: Never Total Score: 0 SERGIO-7 AMB Questionnaire SERGIO-7 Date SERGIO - 7 assessed: 10/08/24 Feeling nervous, anxious, or on edge: 0 = Not at all Not being able to stop or control worryin = Not at all Worrying too much about different things: 0 = Not at all Trouble relaxin = Not at all Being so restless that it is hard to sit still: 0 = Not at all Becoming easily annoyed or irritable: 0 = Not at all Feeling afraid as if something awful might happen: 0 = Not at all Total SERGIO-7 score (0-4 normal; 5-9 mild; 10-14 moderate; 15-21 severe): 0 Source: Developed by Drs. Champ Frod, Sharri Lopez, Miguel Bello and colleagues, with an educational milind from [employer]. SERGIO-7 Assessment Billing SERGIO-7 Assessment Tool: SERGIO-7 Assessment 44135 Review of Systems Const Denies body aches, Denies fatigue, Denies fever(s), Denies headache(s) and Denies weakness Eyes Denies change in vision ENT Denies dizziness and Denies headache(s) Card Denies chest pain, Denies lightheadedness, Denies palpitations and Denies dyspnea Resp Denies chest congestion, Denies cough, Denies dyspnea and Denies wheezing GI Denies abdominal pain, Denies change in bowel habits and Denies heartburn Denies hematuria, Denies difficulty urinating, Denies dysuria, Denies urinary frequency and Denies urinary urgency Musc Reports no additional complaints Skin/Breast Denies lesions and Denies rash Neuro Denies dizziness, Denies headache(s) and Denies weakness Psych Reports no additional complaints Endo Denies fatigue, Denies polydipsia, Denies polyuria and Denies palpitations Nakul/Lymph Reports no additional complaints Aller/Immun Denies seasonal rhinorrhea and Denies wheezing Physical exam (Primary Care) Vital Signs: Last Vital Signs Temp 98.3 F 10/08/24 15:56 Pulse 83 10/08/24 15:56 BP 126/80 10/08/24 15:56 Pulse Ox 97 03/27/25 15:56 Oxygen Delivery Method Room Air 03/27/25 15:56 BMI result Body Mass Index 29.3 Tobacco/Smoking Status: Tobacco use Status Tobacco use date assessed 10/08/24 10/08/24 15:59 Patient Tobacco Use Status Current someday Tobacco 10/08/24 15:59 Tobacco use type Cigarette 10/08/24 15:59 e-Cigarette/Vaping Use Never Used 10/08/24 15:59 PHQ-9: PHQ-9 Score PHQ-9: Total score 0 10/08/24 16:23 Depression Screening Interpretation: Negative Thrive Assessment: Date of Thrive Assessment Date Thrive assessed 10/01/24 10/08/24 15:59 Currently or been in a relationship where the following occur: No concerns reported Advance Care Planning discussion: Declined forms Const General: no acute distress and alert Orientation/consciousness: patient oriented x3 HENMT Ears: EAC's normal General nose exam: Normal external nose present and No nasal discharge present Mouth: Normal oral and palatal mucosa present, oropharynx normal and moist mucous membranes Eyes General: appearance normal, both eyes and all related structures Neck Neck: Yes full ROM, Yes no lymphadenopathy and Yes supple Chest Chest palpation & inspection: normal inspection of the chest Resp Effort & Inspection: normal respiratory effort and able to speak in complete sentences Auscultation: clear to auscultation bilaterally Cardio Rate: regular rate Rhythm: regular rhythm Heart sounds: S1 normal heart sound present and S2 normal heart sound present GI Palpation (GI): Soft to palpation, nontender and no masses Auscultation: normal bowel sounds Male General Exam: Yes normal external exam Back/Spine/Pelvis Back: No back tenderness Skin General skin exam: no rashes or lesions noted Neuro General: patient oriented x3, gait normal, tone normal, moves all extremities, Normal light touch and pain sensation and no focal motor deficits Cranial nerves: Yes CN's II-XII intact bilaterally Cognition (Neuro): normal cognition Extrem General: Yes full ROM, Yes no joint enlargement, Yes no clubbing, cyanosis or edema and Yes no calf tenderness Psych Appearance: grossly normal and well kempt Mental Status: mental status grossly normal Speech and movement: Normal speech and movement present Affect: normal affect Attitude: cooperative Thought process: Normal thought process present Coding Level of Care Code Est Pt Prev Care 40-64y(65779) Diagnoses Annual visit for general adult medical examination with abnormal findings Z00.01 Cigarette smoker motivated to quit F17.210 Environmental and seasonal allergies J30.89 Additional Codes PHQ-9 - 57369 - PHQ-9 Billing: Yes ([id number]) SERGIO-7 Assessment Billing - SERGIO-7 Assessment Tool: SERGIO-7 Assessment 03534 ([id number]) Vital Signs *Quality* - Advance Care Planning discussion: Declined forms ([id number]) Assessment & Plan Assessment & Plan (1) Annual visit for general adult medical examination with abnormal findings: Code(s): Z00. - Encounter for general adult medical examination with abnormal findings Plan: Will check appropriate labs. Recommended dental visit every 6 months and regular eye exams, at least every 2 years. Take adequate calcium in diet and vitamin-D 3 at 2000 IU per cap once a day, continue with regular weight-bearing exercise Instructed to do self-testicular exam check for any mass. Up-to-date with his eye exam, wears glasses for reading. Up-to-date with his shingles vaccine, states that he already had his tetanus shot and gets yearly flu shot and COVID booster. Had a negative Cologuard test done in 2023, due again for colon cancer screening in 2026 (2) Cigarette smoker motivated to quit: Code(s): F17.210 - Nicotine dependence, cigarettes, uncomplicated Category: Social Hx Plan: Started on varenicline starter pack, instructions on how to take medication. Side effects of medication which may include some nausea, unusual dreams discussed with patient, advised to take it with a meal and a glass of water. Start cutting back on his smoking once he starts taking the medication. Follow-up visit in 3 and half weeks after starting Chantix (3) Environmental and seasonal allergies: Code(s): J30.89 - Other allergic rhinitis Category: Medical Plan: Continue fluticasone nasal spray as needed Orders: Orders Glucose Fasting Today Z00.01 - Encounter for general adult medical examination with abnormal findings, Z13.1 - Encounter for screening for diabetes mellitus, Z13.220 - Encounter for screening for lipoid disorders Lipid Panel Today Z00.01 - Encounter for general adult medical examination with abnormal findings, Z13.1 - Encounter for screening for diabetes mellitus, Z13.220 - Encounter for screening for lipoid disorders Aspartate Amino Transferase Today Z00.01 - Encounter for general adult medical examination with abnormal findings, Z13.1 - Encounter for screening for diabetes mellitus, Z13.220 - Encounter for screening for lipoid disorders Alanine Aminotransferase Today Z00.01 - Encounter for general adult medical examination with abnormal findings, Z13.1 - Encounter for screening for diabetes mellitus, Z13.220 - Encounter for screening for lipoid disorders Medications: New varenicline tartrate PO PER PKG DIR 53 ea 0RF F17.210 - Nicotine dependence, cigarettes, uncomplicated
== END 2024-10-08 16:33 | disposition home or self-care (01) ==
LOC: HO.HMCC 15:43
PROVIDERS: Visit Provider Internal Medicine
DX: Z00.01 Encounter for general adult medical examination with abnormal findings (principal); F17.210 Nicotine dependence, cigarettes, uncomplicated; J30.89 Other allergic rhinitis; Z00.00 Encounter for general adult medical examination without abnormal findings

== ENCOUNTER → 2024-10-08 15:42 | Outpatient (BNVA) | payer BC, SELFPAY | PROVIDERS: Visit Provider Internal Medicine | DX: Z00.01 Encounter for general adult medical examination with abnormal findings (principal); J30.89 Other allergic rhinitis; F17.210 Nicotine dependence, cigarettes, uncomplicated | CPT/HCPCS: 96127 ==

== ENCOUNTER 2024-11-05 15:47 | Outpatient (AMB) | payer BC, SELFPAY ==
--- NOTE | 2024-11-05 15:50 | MHC.PC.OV ---
Vital Signs 11/05/24 15:53 Height 5 ft 10 in Weight 202 lb BMI 29.0 BP 132/82 Blood Pressure Location Rt brachial Position Sitting Respiration 16 Pulse 78 Pulse Source Pulse Oximeter Temp 97.8 F Temp Source Oral Pulse Oximetry (%) 96 Oxygen Delivery Method Room Air Intake Visit Reasons: 4 week follow up chantix-ok per AE Intake Note: Pt is here today for his 4wks f/u on chantix Allergies No Known Allergies [No Known Allergies*] Allergy (Verified 11/05/24 16:11) Medication List - Last Reconciled 11/05/24 by Jaymie Kelley MD fluticasone propionate 50 mcg/actuation 2 sprays intranasal DAILY varenicline tartrate 1 mg PO BID Tobacco use date assessed: 11/05/24 Dental Screening Dental Screen Date: 11/05/24 Did you have a dental visit in the last 12 months?: Yes Did you have a dental problem in the last 6 months where you did not have access to dental care?: No Was dental information given to patient?: Patient has dentist HPI 4 week follow up chantix-ok per AE HPI Details 53-year-old male here today for follow-up on his smoking cessation. He was started on varenicline a month ago, has cut down from smoking a pack in 2 days to a pack in 3 days. Patient states that he does not finishes cigarettes stick, as it does not taste well, and he does not get any enjoyment anymore from smoking. He is tolerating the medication well has been taking it as directed twice a day and denies any side effects with the medication. [facility] Medical History Cigarette smoker motivated to quit Environmental and seasonal allergies Deviated nasal septum Surgical History No pertinent past surgical history Family History Father Hypertension Substance use disorder Mother Aneurysm Hypertension Sister Breast cancer Social History Housing: House Alcohol intake: current Comment: twice per month Patient Tobacco Use Status: Current someday Tobacco user Tobacco use type: Cigarette e-Cigarette/Vaping Use: Never Used Current occupational status: employed Cognitive needs: No Hearing needs: No Vision needs: No Questionnaire PHQ-9 Over the last 2 weeks, how often have you been bothered by any of the following problems? Depression Screening Interpretation: Negative Depression Screening Done: Yes Source: Developed by Drs. Champ Ford, Sharri Lopez, Miguel Bello and colleagues, with an educational milind from [employer]. Thrive Questionnaire Date Thrive assessed: 10/01/24 I am a: Patient What is your living situation today?: I have a steady place to live Within the past 12 months, did the food you bought not last and you didn't have the money to get more?: Never true Within the past 12 months, did you worry whether your food would run out before you got money to buy more?: Never true Do you have trouble paying for medicines?: No Do you have trouble getting transportation to medical appointments?: No Do you have trouble paying your heating and electricity bill?: No Do you have trouble taking care of your child, family member or friend?: No Do you have trouble with day-to-day activities such as bathing, preparing meals, shopping, managing finances, etc.?: No Are you currently unemployed and looking for a job?: No Are you interested in more education?: No Please select the resources that you would like help with: None Currently or been in a relationship where the following occur: No concerns reported THRIVE Score: 0 SERGIO-7 AMB Questionnaire SERGIO-7 Date SERGIO - 7 assessed: 10/08/24 Source: Developed by Drs. Champ Ford, Sharri Lopez, Miguel Bello and colleagues, with an educational milind from [employer]. Review of Systems Const All systems reviewed & are unremarkable except as noted in HPI and below Physical exam (Primary Care) Vital Signs: Last Vital Signs Temp 97.8 F 11/05/24 15:53 Pulse 78 11/05/24 15:53 Resp 16 11/05/24 15:53 BP 132/82 11/05/24 15:53 Pulse Ox 96 11/05/24 15:53 Oxygen Delivery Method Room Air 11/05/24 15:53 BMI result Body Mass Index 29.0 Tobacco/Smoking Status: Tobacco use Status Tobacco use date assessed 11/05/24 11/05/24 15:56 Patient Tobacco Use Status Current someday Tobacco 11/05/24 15:56 Tobacco use type Cigarette 11/05/24 15:56 e-Cigarette/Vaping Use Never Used 11/05/24 15:56 Depression Screening Interpretation: Negative Thrive Assessment: Date of Thrive Assessment Date Thrive assessed 10/01/24 11/05/24 15:56 Currently or been in a relationship where the following occur: No concerns reported Advance Care Planning discussion: Declined forms Const Other: Alert oriented x3, no acute distress noted ambulatory General: no acute distress and alert Orientation/consciousness: patient oriented x3 HENNC General nose exam: Normal external nose present and No nasal discharge present Mouth: Normal oral and palatal mucosa present, oropharynx normal and moist mucous membranes Neck Neck: Yes full ROM, Yes no lymphadenopathy and Yes supple Resp Effort & Inspection: normal respiratory effort and able to speak in complete sentences Auscultation: clear to auscultation bilaterally Cardio Rate: regular rate Rhythm: regular rhythm Heart sounds: S1 normal heart sound present and S2 normal heart sound present Skin General skin exam: no rashes or lesions noted Neuro General: patient oriented x3, gait normal, tone normal, moves all extremities, Normal light touch and pain sensation and no focal motor deficits Cranial nerves: Yes CN's II-XII intact bilaterally Cognition (Neuro): normal cognition Extrem General: Yes full ROM, Yes no joint enlargement, Yes no clubbing, cyanosis or edema and Yes no calf tenderness Psych Appearance: grossly normal and well kempt Mental Status: mental status grossly normal Speech and movement: Normal speech and movement present Affect: normal affect Attitude: cooperative Thought process: Normal thought process present Coding Level of Care Code Est Pt Level 4 (25096) Diagnoses Cigarette smoker motivated to quit F17.210 Additional Codes Vital Signs *Quality* - Advance Care Planning discussion: Declined forms ([id number]) Assessment & Plan Assessment & Plan (1) Cigarette smoker motivated to quit: Code(s): F17.210 - Nicotine dependence, cigarettes, uncomplicated Category: Social Hx Plan: Continue cutting back on on his cigarette smoking, will continue on varenicline, prescription sent for 1 mg per tablet taken 1 tablet twice a day with food in a glass of water. Advise patient to continue newly cutting back on his smoking until he is able to quit on the 2nd month on varenicline. Continue taking medicine for at least 2-3 months to avoid relapse. Medications: New varenicline tartrate 1 mg PO BID 56 tabs 3RF Discontinued varenicline tartrate Discontinued Reason: Doctor's Order PO PER PKG DIR 53 ea 0RF F17.210 - Nicotine dependence, cigarettes, uncomplicated
[2024-11-05 15:53] VITALS: BP 132/82; PULSE 78; RESP 16; TEMP 36.6; O2SAT 96; BMI 29.0
== END 2024-11-05 16:09 | disposition home or self-care (01) ==
LOC: HO.HMCC 15:48
PROVIDERS: PCP Internal Medicine; Visit Provider Internal Medicine
DX: F17.210 Nicotine dependence, cigarettes, uncomplicated (principal); Z00.00 Encounter for general adult medical examination without abnormal findings

== ENCOUNTER → 2024-11-05 15:47 | Outpatient (BNVA) | payer BC, SELFPAY | PROVIDERS: PCP Nurse Practitioner Primary Care; Visit Provider Internal Medicine | DX: Z13.89 Encounter for screening for other disorder (principal) ==

== ENCOUNTER 2025-01-29 07:46 | Outpatient (AMB) | payer BC, SELFPAY ==
--- NOTE | 2025-01-29 08:24 | MHC.PC.OV ---
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 He has been on varenicline now since September of 2024, and states that he has now finally quit smoking completely 2 weeks ago. He has just been taking varenicline 1 mg in the morning with breakfast, tolerating medication well, no side effects. [facility] Medical History (Updated 01/29/25 @ 08:40 by Jaymie Kelley MD) On Chantix therapy Former heavy tobacco smoker Cigarette smoker motivated to quit Environmental and seasonal allergies Deviated nasal septum Surgical History No pertinent past surgical history Family History Father Hypertension Substance use disorder Mother Aneurysm Hypertension Sister Breast cancer Social History Housing: House Alcohol intake: current Comment: twice per month Patient Tobacco Use Status: Former Tobacco user Tobacco use type: Cigarette e-Cigarette/Vaping Use: Never Used Current occupational status: employed Cognitive needs: No Hearing needs: No Vision needs: No Questionnaire PHQ-9 Over the last 2 weeks, how often have you been bothered by any of the following problems? 1. Little interest or pleasure in doing things: not at all 2. Feeling down, depressed, or hopeless: not at all 3. Trouble falling or staying asleep, or sleeping too much: not at all 4. Feeling tired or having little energy: not at all 5. Poor appetite or overeating: not at all 6. Feeling bad about yourself - or that you are a failure or have let yourself or your family down: not at all 7. Trouble concentrating on things, such as reading the newspaper or watching television: not at all 8. Moving or speaking so slowly that other people could have noticed. Or the opposite - being so fidgety or restless that you have been moving around a lot more than usual: not at all 9. Thoughts that you would be better off or of hurting yourself in some way: not at all Total score: 0 Depression Screening Interpretation: Negative Depression Screening Done: Yes 85217 - PHQ-9 Billing: Yes Source: Developed by Drs. Champ Ford, Sharri Lopez, Miguel Bello and colleagues, with an educational milind from [employer]. Thrive Questionnaire Date Thrive assessed: 01/29/25 I am a: Patient What is your living situation today?: I have a steady place to live Within the past 12 months, did the food you bought not last and you didn't have the money to get more?: Never true Within the past 12 months, did you worry whether your food would run out before you got money to buy more?: Never true Do you have trouble paying for medicines?: No Do you have trouble getting transportation to medical appointments?: No Do you have trouble paying your heating and electricity bill?: No Do you have trouble taking care of your child, family member or friend?: No Do you have trouble with day-to-day activities such as bathing, preparing meals, shopping, managing finances, etc.?: No Are you currently unemployed and looking for a job?: No Are you interested in more education?: No Please select the resources that you would like help with: None Currently or been in a relationship where the following occur: No concerns reported THRIVE Score: 0 AUDIT C Alcohol Use Questionnaire (AUDIT-C) 1. How often do you have a drink containing alcohol?: Never 2. How many drinks containing alcohol do you have on a typical day when you are drinking?: 1 or 2 3. How often do you have six or more drinks on one occasion?: Never Total Score: 0 Score Reviewed/Action Taken: Yes SERGIO-7 AMB Questionnaire SERGIO-7 Date SERGIO - 7 assessed: 01/29/25 Feeling nervous, anxious, or on edge: 0 = Not at all Not being able to stop or control worryin = Not at all Worrying too much about different things: 0 = Not at all Trouble relaxin = Not at all Being so restless that it is hard to sit still: 0 = Not at all Becoming easily annoyed or irritable: 0 = Not at all Feeling afraid as if something awful might happen: 0 = Not at all Total SERGIO-7 score (0-4 normal; 5-9 mild; 10-14 moderate; 15-21 severe): 0 Source: Developed by Drs. Champ Ford, Sharri Lopez, Miguel Bello and colleagues, with an educational milind from [employer]. SERGIO-7 Assessment Billing SERGIO-7 Assessment Tool: SERGIO-7 Assessment 68816 Review of Systems Const All systems reviewed & are unremarkable except as noted in HPI and below Physical exam (Primary Care) Tobacco/Smoking Status: Tobacco use Status Tobacco use date assessed 11/05/24 01/29/25 08:26 Patient Tobacco Use Status Former Tobacco user 01/29/25 08:26 Tobacco use type Cigarette 01/29/25 08:26 e-Cigarette/Vaping Use Never Used 01/29/25 08:26 PHQ-9: PHQ-9 Score PHQ-9: Total score 0 01/29/25 08:37 Depression Screening Interpretation: Negative Thrive Assessment: Date of Thrive Assessment Date Thrive assessed 01/29/25 01/29/25 08:26 Currently or been in a relationship where the following occur: No concerns reported Telehealth Telehealth Telehealth Platform: [facility] Location of provider rendering services: practice address Location of patient: address on file Patient Identification confirmed using: Name, : Yes Telehealth method: video Patient verbally consented to treatment: Yes Patient verbally consented to billing insurance company: Yes Patient informed of any privacy concerns related to visit: Yes Minutes spent on Phone/Video with Pt.: 15 Coding Level of Care Code Tele Est Pt Level 3 (14966) Diagnoses Former heavy tobacco smoker Z87.891 On Chantix therapy Z79.899 Additional Codes SERGIO-7 Assessment Billing - SERGIO-7 Assessment Tool: SERGIO-7 Assessment 29527 ([id number]) PHQ-9 - 27916 - PHQ-9 Billing: Yes ([id number]) Assessment & Plan Assessment & Plan (1) Former heavy tobacco smoker: Code(s): Z87.891 - Personal history of nicotine dependence Category: Social Hx (2) On Chantix therapy: Code(s): 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 Congratulated patient on quitting smoking.
== END 2025-01-29 09:50 | disposition home or self-care (01) ==
LOC: HO.HMCC 07:46
PROVIDERS: PCP Internal Medicine; Visit Provider Internal Medicine
DX: Z71.6 Tobacco abuse counseling (principal); Z87.891 Personal history of nicotine dependence; Z79.899 Other long term (current) drug therapy

== ENCOUNTER → 2025-01-29 07:46 | Outpatient (BNVA) | payer BC, SELFPAY | PROVIDERS: PCP Internal Medicine; Visit Provider Internal Medicine | DX: Z71.6 Tobacco abuse counseling (principal); Z87.891 Personal history of nicotine dependence; Z79.899 Other long term (current) drug therapy; Z13.31 Encounter for screening for depression; Z13.39 Encounter for screening examination for other mental health and behavioral disorders | CPT/HCPCS: 96127 ==